=== PATIENT | female | born 2000 | race African-American/Black ===

== ENCOUNTER 2023-02-21 13:22 | Emergency (ER) | payer OTHER ==
[~2023-02-21] VITALS: Ht 157.5 cm; Wt 65.2 kg
[~2023-02-21 13:22] MED LIST: DOXY100T PO; FLUC150T9 PO; no home meds
[2023-02-21 13:23] VITALS: BP 122/69; TEMP 99.4; O2SAT 99
== END 2023-02-21 16:00 | disposition left against medical advice (07) ==
LOC: M ED 13:22
DX: Z53.21 Procedure and treatment not carried out due to patient leaving prior to being seen by health care provider (principal)

== ENCOUNTER 2023-05-03 15:12 | Emergency (ER) | payer OTHER ==
[~2023-05-03] VITALS: Ht 152.4 cm; Wt 67.1 kg
[2023-05-03 15:13] VITALS: TEMP 97.2; O2SAT 100
[2023-05-03 17:29] LABS: BASO % 0.3 % (0.0-1.0); EOS % 0.4 % (0.0-3.0); HEMOGLOBIN 13.9 g/dl (12.0-15.5); LYMPH # 1.7 10^3/uL (1.5-5.0); LYMPH % 22.6 % (24.0-44.0); MEAN CORPUSCULAR HGB CONC 31.6 g/dl (32.0-36.5); MONO # 0.5 10^3/uL (0.0-0.8); NEUTROPHILS # 5.3 10^3/uL (1.5-8.5); NEUTROPHILS % 69.3 % (36.0-66.0); PLATELET COUNT, AUTOMATED 337 10^3/uL (150-450); RED BLOOD COUNT 5.57 10^6/uL (4.00-5.40); WHITE BLOOD COUNT 7.6 10^3/uL (4.0-10.0)
[2023-05-03 18:24] LABS: BLOOD UREA NITROGEN 6 MG/DL (9-23); CALCIUM LEVEL 9.6 MG/DL (8.5-10.1); CARBON DIOXIDE LEVEL 20 MMOL/L (20-31); CHLORIDE LEVEL 104 MMOL/L (98-107); CREATININE FOR GFR 0.53 MG/DL (0.55-1.30); GLOMERULAR FILTRATION RATE > 60.0 (>60); GLUCOSE, FASTING 89 MG/DL (60-100); HCG, SERUM QUANTITATIVE 162475.3 MIU/ML (<4.2); SODIUM LEVEL 131 MMOL/L (136-145)
[2023-05-03] MEDS: METOCLOPRAMIDE INJ 10MG/2ML VIAL IV ONE (19:07)
[2023-05-03] MEDS: NS 1,000 ML IV ONE (19:07)
[2023-05-03] MEDS: ACETAMINOPHEN *IV* 1,000 MG in IV 1 EA IV ONE (19:07)
[2023-05-03 20:23] VITALS: BP 137/91
== END 2023-05-03 21:48 | disposition home or self-care (01) ==
LOC: M ED 15:12
DX: O99.281 Endocrine, nutritional and metabolic diseases complicating pregnancy, first trimester (principal); E87.1 Hypo-osmolality and hyponatremia; Z3A.00 Weeks of gestation of pregnancy not specified
CPT/HCPCS: 80048; 84702; 85025; 87486; 87581; 87633; 87798; 87880; 96365; 96375; 99284; J0131; J2765

== ENCOUNTER 2024-10-23 21:51 | Emergency (ER) | payer OTHER ==
[~2024-10-23] VITALS: Ht 152.4 cm; Wt 74.9 kg
[2024-10-23 23:54] VITALS: BP 140/70; TEMP 97.9; O2SAT 99
== END 2024-10-24 00:33 | disposition left against medical advice (07) ==
LOC: M ED 21:51
DX: Z53.21 Procedure and treatment not carried out due to patient leaving prior to being seen by health care provider (principal)

== ENCOUNTER 2024-11-11 02:20 | Emergency (ER) | payer OTHER ==
[~2024-11-11] VITALS: Ht 152.4 cm; Wt 72.5 kg
[2024-11-11 03:17] LABS: PLATELET COUNT, AUTOMATED 346 10^3/uL (150-450)
[2024-11-11 03:40] LABS: AMPHETAMINES LEVEL URINE NEGATIVE (NEGATIVE); BARBITURATES URINE NEGATIVE (NEGATIVE); BENZODIAZEPINES URINE NEGATIVE (NEGATIVE); CANNABINOIDS URINE NEGATIVE (NEGATIVE); COCAINE METABOLITE URINE NEGATIVE (NEGATIVE); METHADONE URINE NEGATIVE (NEGATIVE); OPIATES URINE NEGATIVE (NEGATIVE); PHENCYCLIDINE URINE NEGATIVE (NEGATIVE)
[2024-11-11 04:11] LABS: ALT/SGPT 29 U/L (7.0-40); AST/SGOT 19 U/L (<34); CALCIUM LEVEL 9.7 MG/DL (8.5-10.1); CARBON DIOXIDE LEVEL 23 MMOL/L (20-31); CHLORIDE LEVEL 108 MMOL/L (98-107); CREATININE FOR GFR 0.63 MG/DL (0.55-1.30); GLOMERULAR FILTRATION RATE > 90.0 (>60); POTASSIUM SERUM 4.6 MMOL/L (3.5-5.1); SALICYLATE LEVEL < 3.0 MG/DL (<30); SODIUM LEVEL 141 MMOL/L (136-145)
[2024-11-11 04:27] LABS: ETHYL ALCOHOL (ETHANOL) < 0.003 % (0.000-0.010)
[2024-11-11] MEDS ORDERED: RAME8TAB2 PO (04:57)
[2024-11-11] MEDS ORDERED: SUMA25TA3 PO (04:57)
[2024-11-11 08:11] LABS: HCG, SERUM QUALITATIVE NEGATIVE (NEGATIVE)
[2024-11-11 09:53] VITALS: BP 123/74; TEMP 97.3; O2SAT 99
== END 2024-11-11 09:56 | disposition home or self-care (01) ==
LOC: M ED 02:20
DX: F43.21 Adjustment disorder with depressed mood (principal); F41.9 Anxiety disorder, unspecified; F43.10 Post-traumatic stress disorder, unspecified